=== PATIENT | male | born 1960 | race Caucasian/White ===

== ENCOUNTER 2024-01-10 18:42 | Emergency (ER) | payer OTHER, SELFPAY ==
[2024-01-10 18:51] VITALS: BP 150/88
[2024-01-10 19:26] VITALS: BMI 40.7
--- NOTE | 2024-01-10 19:29 | ED.SKININJ ---
HPI-Injury
General
Chief Complaint: Bite
Source: patient and spouse
Exam Limitations: none
Time Seen by Provider: 01/10/24 19:00
Nursing documentation reviewed up to this point in time: agreed with
Travel History
Have you had any contact with someone who has COVID-19?: No
Do you have any symptoms of coronavirus? Fever > 100 degrees, chills, cough, shortness of breath, sore throat, loss of taste or smell, muscle aches, or headache?: No
History of Present Illness-Injury
Is pt an associate of [facility]?: No
Initial Injury comments:
63-year-old male presenting to the emergency department today with concerns of a dog bite to his right thumb. He claims this was his own dog who was in a fight with his daughter's dog's dog is up-to-date with vaccinations as well as his daughter's
dog. The dog is otherwise acting normally he is no concerns of rabies and the dog is up-to-date with vaccinations. He denies any numbness weakness but does have a laceration to his thumb. Denies additional injuries. Last tetanus shot was a few
years ago.
Past History
Past History
ED Past Medical History: Other (back pain, gout)
ED Past Surgical History: None
Social History
Tobacco: Non-smoker
Alcohol: None
Personal:
Living: with family
Review of Systems
Review of Systems
Allergies reviewed?: Yes
All Other Systems: ROS reviewed and negative except as documented in HPI and ROS
Phy Exam
Physical Exam
Physical Exam:
GENERAL: Alert , in no apparent distress
EYE: pupils equal and reactive
NECK: Supple, no significant adenopathy.
ENT: o/p clr, mmm.
CARDIAC: Regular rate and rhythm .
LUNGS: Clear breath sounds bilaterally, no acute respiratory distress, no wheezes/rales/rhonchi
ABDOMEN: Soft, without focal tenderness, no r/g, no cvat
NEUROLOGICAL: Alert and oriented, no focal neuro deficits
SKIN: Laceration puncture wound to the right thumb on the ulnar aspect and medial aspect. Roughly 1 cm in length no foreign body seen warm and dry, skin intact.
MUSCULOSKELETAL: No edema, well perfused.
PSYCH: Normal and appropriate interaction.
Course
Orders/Labs/Results
Orders:
Orders
01/10/24 19:18
Clindamycin HCl [Cleocin] 450 mg PO NOW STA
Sulfamethox./Trimethoprim Ds [Bactrim Ds 800 mg/160 mg] 1 tablet PO NOW STA
CR Hand - Right Min 3 Views Urgent
Comment:
Reason For Exam: right hand thumb dog bite
Vital Signs
Initial and Last Documented VS:
Initial Vital Signs
Temp Pulse Resp BP Pulse Ox
98.6 F 77 20 150/88 94
01/10/24 18:51 01/10/24 18:51 01/10/24 18:51 01/10/24 18:51 01/10/24 18:51
Last Documented Vital Signs
Temp Pulse Resp BP Pulse Ox
98.6 F 77 20 150/88 94
01/10/24 18:51 01/10/24 18:51 01/10/24 18:51 01/10/24 18:51 01/10/24 18:51
MDM/Problems Addressed
MDM/Problems Addressed:
63-year-old male presenting to the emergency department after a dog bite to his right thumb. Area was cleaned thoroughly with no signs of foreign body x-ray without signs of underlying injury. Patient was started on antibiotics and was given
clindamycin as well as Bactrim as this is second line considering his penicillin allergy. Otherwise very low risk for rabies as both dogs are vaccinated and otherwise acting normally. He is up-to-date with his tetanus shot stable for outpatient
management return precautions given.
*Critical Care Note
Total Time (30-74mins, 75-104mins- exclusive of procedures): Not Applicable
ED Attending Note
-
Portions of this chart may have been created with voice recognition software.� Occasional wrong word or��sound alike� substitutions may have occurred due to the inherent limitations of voice recognition software.
Discharge Plan
Departure
Patient Disposition: Home (Routine Discharge)
Date of Disposition: 01/10/24
Time of Disposition: 20:23
Patient with high blood pressure during this ER visit?: No
Condition: Good
Covid-19: Not Applicable
Discharge Problem:
Dog bite of right thumb
Instructions: Animal Bites (DC)
Prescriptions:
New
clindamycin HCl 150 mg capsule
450 mg PO TID 5 Days Qty: 45 0RF
sulfamethoxazole-trimethoprim [Bactrim DS] 800-160 mg tablet
1 tab PO BID 5 Days Qty: 10 0RF
No Action
doxycycline hyclate 100 MG capsule
100 mg PO Q12 Qty: 13 0RF
Referrals:
Fabiola Mc MD [Family Provider] -
Activity Restrictions/Additional Instructions:
You came to the emergency department today after being bit on your thumb by her dog. X-ray did not show any signs of fracture or underlying injury. You are started on antibiotics please take the clindamycin 3 times daily for the next 5 days as
well as Bactrim twice daily for the next 5 days keep the area clean covered and return for any signs of infection.
Interventions
Interventions:
*Risk Screen - Suicide Last Done: 01/10/24 18:51
*General Assessment Last Done: 01/10/24 18:51
*Neglect/Abuse Screening Last Done: 01/10/24 18:51
ED- Fall Risk Assessment Last Done: 01/10/24 18:51
*ED COVID-19 Vaccine History Last Done: 01/10/24 18:51
ED-Skin Assessment Last Done: 01/10/24 19:28
Discharge Date and Time
Print Language: HUNGARIAN
[2024-01-10] MEDS: BACTRIM DS 800 MG/160 MG 1 TABLET PO (20:00)
[2024-01-10] MEDS: CLEOCIN 450 MG PO (20:00)
[2024-01-10 21:24] VITALS: BP 148/88
== END 2024-01-10 21:25 | disposition home or self-care (01) ==
LOC: EMR 18:42
PROVIDERS: EMERGENCY PHYSICIAN Emergency Medicine; FAMILY PHYSICIAN Internal Medicine
DX: S61.051A Open bite of right thumb without damage to nail, initial encounter (principal); W54.0XXA Bitten by dog, initial encounter
CPT/HCPCS: 99283; 73130

== ENCOUNTER → 2025-05-20 07:43 | Outpatient (REF) | payer OTHER, SELFPAY | LOC: MRI 3T 07:43 | PROVIDERS: ATTENDING PHYSICIAN Psychiatry & Neurology Neurology; FAMILY PHYSICIAN Internal Medicine | DX: M54.16 Radiculopathy, lumbar region (principal) | CPT/HCPCS: 72148 ==